=== PATIENT | female | born 1945 | race Caucasian/White ===

== ENCOUNTER 2017-12-21 09:45 | Emergency (ER) | payer OTHER ==
[2017-12-21 09:52] VITALS: BP 189/108; PULSE 90; RESP 17; TEMP 97.7; O2SAT 97
--- NOTE | 2017-12-21 10:10 | EDPHY ---
H & P Stated Complaint: tripped on rock walking dog/lac to r knee/denies loc or neck pain Source: Patient, Family Exam Limitations: No limitations (A) - Personal History Current Tetanus/Diphtheria Vaccine: Yes - Medical/Surgical History Hx Asthma: No Hx Chronic Respiratory Disease: No Hx Diabetes: Yes Hx Cardiac Disease: No Hx Renal Disease: No Hx Cirrhosis: No Hx Alcoholism: No Hx HIV/AIDS: No Hx Splenectomy or Spleen Trauma: No Other PMH: breast cancer/htn - Social History Smoking Status: Former smoker Time Seen by Provider: 12/21/17 10:09 HPI/ROS: HPI: This is a 72-year-old female who presents with Chief Complaint: tripped on rock walking dog/lac to r knee/denies loc or neck pain Location: right knee Quality: injury Duration: 1hour prior to arrival Signs and Symptoms: + bleeding, no radiation, no numbness, no weakness, no tingling, no incontinence, no decreased range of motion, no swelling, + pain Timing:acute Severity: 01/23 Context: Patient presents to the ER ambulatory with complaints of cutting her right knee s/p tripping [place] on the trail while walking her daughter's dog. She reports she fell directly on her right knee landing on a jagged rock which cut her knee. She denies LOC/head injury/neck pain/dizziness/nausea/ vomiting/amnesia. Patient reports that tetanus is current. Walked back home and washed out with hydrogen peroxide. Politely declines knee xray as "I am ok. " Modifying Factors: see above Comment: ROS: see HPI Constitutional: No fever, no chills, no weight loss Eyes: No blurred vision Respiratory: No shortness of breath, no cough Cardiovascular: No chest pain Gastrointestinal: No nausea, no vomiting no diarrhea Genitourinary: No dysuria Extremities: No myalgias Neurologic: No weakness, no numbness Skin: No rashes Hematologic: No bruising, no bleeding MEDICAL/SURGICAL/SOCIAL HISTORY: Medical history: Breast cancer, diabetes, hypertension. Surgical history: Denies Social history: Retired. . CONSTITUTIONAL: Elderly pleasant white female, at bedside, awake and alert, no obvious distress HEENT: Atraumatic and normocephalic. NECK: supple, no midline tenderness, flexion 45 degrees, extension 45 degrees, right and left lateral flexion 45 degrees. No meningismus. Cardiovascular: Normal S1/S2, regular rate, regular rhythm, without murmur rub or gallop. PULMONARY/CHEST: Symmetrical and nontender. no crepitus. Clear to auscultation bilaterally. Good air movement. No accessory muscle usage. ABDOMEN: Soft, nondistended, nontender, no ecchymosis. PELVIC: no pain with rocking; bilateral hips flexion 125 degrees, extension 30 degrees, with no pain internal rotation and no pain external rotation. BACK: No midline tenderness, no paraspinous spasm, deep tendon reflexes 2/2, no pain with straight leg raise EXTREMITIES: 2/2 DP and PT pulses, right KNEE: L shaped 3 cm, irregular, deep laceration anterior knee over patella, Mild effusion, medial and lateral joint line tenderness, full extension to 180, flexion to 120. No pain with varus and valgus exam. No pain with anterior drawer or posterior drawer test. strength 5/5, DIP/PIP/MCP flexion/extension intact with good light touch sensation. no deformities, no clubbing, no cyanosis or edema. NEUROLOGICAL: no focal neuro deficits. GCS 15. Light touch sensation intact. SKIN: Warm and dry, no erythema. no rash. Good capillary refill. (Driss,Hailey) Constitutional: Initial Vital Signs Temperature (C) 36.5 C 12/21/17 09:49 Heart Rate 90 12/21/17 09:49 Respiratory Rate 17 12/21/17 09:49 Blood Pressure 189/108 H 12/21/17 09:49 O2 Sat (%) 97 12/21/17 09:49 O2 Delivery Mode Room Air Allergies/Adverse Reactions: Penicillins Allergy (Verified 12/21/17 09:47) Home Medications: Medication Instructions Recorded Allopurinol 12/21/17 Lipitor 12/21/17 Lisinopril 12/21/17 Metformin HCl 12/21/17 Metoprolol Succinate 12/21/17 Medical Decision Making Procedures: Procedure: Laceration repair. Verbal consent was obtained from the patient. The L shaped 3 cm, irregular, deep laceration anterior knee over patella was anesthetized in the usual fashion using 8 mL 0.5% bupivacaine with epinephrine The wound was irrigated, draped and explored to its base with a gloved finger. There were no deep structures involved. No tendon injury was identified. The wound was repaired with #7, 4-0 Prolene. Good hemostasis was achieved and patient tolerated procedure well. Clean sterile dressing applied. The procedure was performed by myself. (Hailey Naqvi) ED Course/Re-evaluation: Patient politely declined x-ray images of her knee. No signs of neurovascular compromise/tenting of skin/compartment syndrome/ extremities and joints examined above and below area of concern and are neurovascularly intact/extensor mechanism dysfunction. Tetanus up-to-date Copiously irrigated; no foreign bodies identified; Laceration repaired; clean sterile dressing applied Ambulatory at discharge without any pain. Wound care instructions provided. This patient was seen under the supervision of my secondary supervising physician. I evaluated care for this patient independently. (Hailey Naqvi) I did not see this patient while she was in the emergency department. However her care was discussed with the PA while the patient was in the department. I agree with treatment plan and management (Jalen Leonardo) Differential Diagnosis: Knee injury while [] including but not limited to fracture, ACL injury, contusion, muscular strain, and meniscus injury. (Hailey Naqvi) Departure - Departure Disposition: Home, Routine, Self-Care Clinical Impression: Laceration of right knee without complication Condition: Good Instructions: Care For Your Stitches (ED), Laceration (ED) Additional Instructions: Keep the dressing dry and in place for 48 hours. After 48 hours, you may remove the dressing; wash the site daily with mild soap and water; then pat dry and apply clean sterile dressing until fully healed. Take Tylenol 650 mg every 4 hours and/or Ibuprofen 600 mg every 8 hours with food as needed for pain. Apply ice for 30 minutes at a time; 2-3 times per day for the next 1-2 days. Return to the emergency room in 10-14 days to have your sutures removed. Return to the ER immediately if you experience new or worsening pain, discoloration, numbness, tingling, or any other symptoms that concern you. Referrals: PCP Not In,Dictionary [Medical Doctor] - As per Instructions
== END 2017-12-21 10:40 | disposition home or self-care (01) ==
PROC: 0HQKXZZ Repair Right Lower Leg Skin, External Approach (ICD-10-PCS; principal; 2017-12-21)
DX: S81.011A Laceration without foreign body, right knee, initial encounter (principal); I10 Essential (primary) hypertension; E11.9 Type 2 diabetes mellitus without complications; Z87.891 Personal history of nicotine dependence; Z85.3 Personal history of malignant neoplasm of breast; Z79.84 Long term (current) use of oral hypoglycemic drugs; W01.0XXA Fall on same level from slipping, tripping and stumbling without subsequent striking against object, initial encounter; Y93.K1 Activity, walking an animal